=== PATIENT | male | born 1990 | race African-American/Black ===

== ENCOUNTER 2016-12-25 14:25 | Emergency (ER) | payer SELFPAY ==
[~2016-12-25] VITALS: Ht 172.7 cm; Wt 73.8 kg
[2016-12-25 14:27] VITALS: BP 128/80
== END 2016-12-25 15:15 | disposition home or self-care (01) ==
LOC: ED 15:00
DX: S93.402A Sprain of unspecified ligament of left ankle, initial encounter (principal); X50.9XXA Other and unspecified overexertion or strenuous movements or postures, initial encounter; Y93.67 Activity, basketball; Y99.8 Other external cause status; Y92.89 Other specified places as the place of occurrence of the external cause
CPT/HCPCS: 99283